=== PATIENT | female | born 1965 | race Caucasian/White ===

== ENCOUNTER 2016-11-13 17:49 | Inpatient (IN) | payer BC, MEDICAID ==
[~2016-11-13] VITALS: Ht 167.6 cm; Wt 68.5 kg
[2016-11-13 17:55] VITALS: BP_SYST 139
--- NOTE | 2016-11-13 18:00 | NUR ---
Vianney Stringer DIRECTOR OF ANALYTICS at bedside examining pt.
--- NOTE | 2016-11-13 18:09 | NUR ---
Pt AAOx4, able to verbalize needs. Pt states she was feeling stressed out d/t of spouse few days ago. Pt states 6/10 sharp pain in chest radiating to L arm, started after eating, unaffected by activity. No other complaints or inuries per pt or noted.
[2016-11-13] MEDS ORDERED: LORazepam 2 MG/ML VIAL IVP ONE (18:30)
[2016-11-13] MEDS ORDERED: ASPIRIN 81 MG TAB.CHEW PO ONE (18:30)
[2016-11-13] MEDS ORDERED: LevALBUTEROL HCL 1.25 MG/0.5 ML *CONC.* VIAL.NEB (XOPENEX CONC.) INH ONE (18:30)
[2016-11-13 18:45] LABS: CALCIUM 8.3 mg/dL (8.4-11.0); CREATININE 0.99 mg/dL (0.55-1.30); POTASSIUM 3.3 mmol/L (3.5-5.1)
[2016-11-13 18:50] LABS: ALBUMIN 3.5 g/dL (3.4-4.8); TOTAL BILIRUBIN 0.4 mg/dL (0.0-1.0)
--- NOTE | 2016-11-13 18:50 | NUR ---
Dr. Thomas at bedside with pt.
[2016-11-13] MEDS ORDERED: POTASSIUM CHLORIDE 10 MEQ TAB.PRT.SR PO ONE (19:00)
--- NOTE | 2016-11-13 19:00 | NUR ---
IV 20G inserted on R wrist via aseptic technique, flushed, patent. One attempt. No infiltration or erythema noted.
[2016-11-13 19:11] LABS: BASOPHILS # (AUTO) 0.1 K/uL (0.0-0.2); BASOPHILS % (AUTO) 0.7 % (0.0-2.0); EOSINOPHILS # (AUTO) 0.2 K/uL (0.0-0.4); HEMATOCRIT 33.5 % (36-48); HEMOGLOBIN 11.1 g/dL (12.0-16.0); LYMPHOCYTES # (AUTO) 1.4 K/uL (1.0-5.5); LYMPHOCYTES % (AUTO) 15.9 % (20.5-51.5); MEAN CORPUSCULAR HEMOGLOBIN 27 pg (27-31); MEAN CORPUSCULAR HGB CONC 33 % (32-36); MEAN CORPUSCULAR VOLUME 81 fL (79.0-98.0); MONOCYTES # (AUTO) 0.6 K/uL (0.0-1.0); MONOCYTES % (AUTO) 6.5 % (1.7-9.3); NEUTROPHILS # (AUTO) 6.3 K/uL (1.8-7.7); NEUTROPHILS % (AUTO) 74.9 % (40.0-70.0); PLATELET COUNT (AUTO) 267 K/uL (130-430); RED BLOOD CELL COUNT(AUTO) 4.12 MIL/uL (4.2-6.2); RED CELL DISTRIBUTION WIDTH 14.4 % (9.0-15.0); WHITE BLOOD COUNT (AUTO) 8.6 K/uL (4.8-10.8)
--- NOTE | 2016-11-13 19:11 | NUR ---
Report received from BRUNA Dowling: All care endorsed.
[2016-11-13] MEDS ORDERED: LORazepam 2 MG/ML VIAL (FOR ER USE) ONE (19:22)
--- NOTE | 2016-11-13 19:30 | NUR ---
Pt states that chest pain has lowered to 5/10 pain scale at this time, pt resting in bed. Pt states chest pain is currently a dull pain, denies radiation to the L arm at this time. Pt denies SOB, 97% on room air. Pt denies any other complaints.
[2016-11-13 19:32] LABS: BILIRUBIN,URINE NEGATIVE (NEGATIVE); BLOOD, URINE 3+ (NEGATIVE); CLARITY/URINE CLOUDY (CLEAR); COLOR,URINE RED (YELLOW); GLUCOSE,URINE NEGATIVE (NEGATIVE); KETONES,URINE NEGATIVE (NEGATIVE); LEUKOCYTE ESTERASE ,URINE NEGATIVE (NEGATIVE); NITRITE, URINE NEGATIVE (NEGATIVE); PROTEIN URINE 2+ (NEGATIVE); UROBILINOGEN,URINE 0.2 (0.2-1.0)
--- NOTE | 2016-11-13 20:00 | NUR ---
Pt stable, no signs of distress noted.
--- NOTE | 2016-11-13 20:35 | NUR ---
Pt denies taking any home meds at home. Belongings list completed by BRUNA Galaviz.
--- NOTE | 2016-11-13 20:49 | NUR ---
Patient will be admitted to care of Dr. Mcqueen. Admitted to tele unit. Belongings list completed. Summary report printed. Report given to admitting RN at bedside.
--- NOTE | 2016-11-13 20:49 | NUR ---
Note gustavo in ED - 11/14/16 at 0221 by SDEDEJ Patient will be admitted to care of Dr. uRvalcaba. Admitted to tele unit. Belongings list completed. Summary report printed. Report given to admitting RN at bedside.
[2016-11-13 21:00] VITALS: BP_SYST 131
--- NOTE | 2016-11-13 21:08 | NUR ---
ADMISSION NOTE Received patient from ER via dwight, received report from Wilma MCFARLAND. Patient admitted with diagnosis of chest pain. Patient oriented to hospital routine, call light, toileting and safety-patient verbalized understanding.
[2016-11-13 21:14] LABS: BACTERIA,URINE FEW /HPF (None Seen); MUCUS,URINE 2+ /LPF (None Seen); RBC,URINE >100 /HPF (0-3)
--- NOTE | 2016-11-13 21:15 | NUR ---
Received report & assumed care of pt at this time;admission physical assess as charted,pt currenlty lethargic,difficult to arouse (received IV Ativan in ER); no signs/symptoms of pain/distress observed
[2016-11-13] MEDS ORDERED: ASPIRIN 325 MG TABLET (ECOTRIN) PO ONE (21:45)
[2016-11-13] MEDS ORDERED: METOPROLOL TARTRATE 25 MG TABLET PO ONE (21:45)
[2016-11-13 22:00] VITALS: BP_SYST 131
--- NOTE | 2016-11-13 23:00 | NUR ---
Pt care rounds conducted hourly;pt remains asleep & difficult to arouse;resp even & reg w/no signs of pain observed
[2016-11-14 00:45] VITALS: BP_SYST 127
[2016-11-14] MEDS ORDERED: *HEPARIN PER PHARMACY XX ONE (00:45)
--- NOTE | 2016-11-14 00:45 | NUR ---
0016:Critical Lab:notified of Trop level=13.23;discussed w/charge nurse;will call roller engraver consulted & request stat consult 0030:call placed to Dr Ramirez's exchange;informed Dr Schmitt laborer demolition 0035:Dr Schmitt returned call;2 previous troponin results,telemetry reading & VS discussed;received orders for heparin drip
[2016-11-14] MEDS ORDERED: HEPARIN SODIUM,PORCINE 2000 UNITS/0.4 ML BOLUS IVP PRN (01:15)
[2016-11-14] MEDS ORDERED: HEPARIN SODIUM,PORCINE 5000 UNITS/ML VIAL IV ONE (01:15)
[2016-11-14] MEDS ORDERED: HEPARIN SODIUM,PORCINE 3000 UNITS/0.6 ML BOLUS IVP PRN (01:15)
[2016-11-14] MEDS: HEPARIN 25,000 UNITS/D5W 250ML 250 ML IV PRN ×3 (02:39→18:01)
--- NOTE | 2016-11-14 03:00 | NUR ---
Pt care rounds conducted hourly;pt intermittenlty sleeping/awake;pt pleasant & cooperative,steady gait;pt denies chest discomfort, no signs of acute distress observed
[2016-11-14 03:47] VITALS: BP_SYST 135
--- NOTE | 2016-11-14 04:17 | NUR ---
CONSULT: CONSULT CALLED FOR DR. TYSON I SPOKE WITH [facility] AIDE #[id number] REASON FOR CONSULT: CHEST PAIN NUMBER I CALLED [phone] CONSULT ENTERED : BY DR. BENSON
--- NOTE | 2016-11-14 06:30 | NUR ---
Closing Note:pt care rounds conducted hourly;pt slept most of night;awake/alert & oreinted x4 at present,denies chest pain; no signs/symptoms of acute distress evident
[2016-11-14 08:00] VITALS: BP_SYST 140
--- NOTE | 2016-11-14 08:00 | NUR ---
OPENING NOTES, PT IN BED, DENIES ANY CHEST PAIN THIS TIME. PT KEPT NPO FOR POSS STENT PLACEMENT, HEPARIN DRIP ONGOING. NO BLEEDING FROM IV SITE. NO BLEEDING NOTED OR REPORTED. CALL LIGHT IN REACH. BED IN LOW POSITION. WILL CONT TO MONITOR.
[2016-11-14] MEDS ORDERED: METOPROLOL TARTRATE 25 MG TABLET PO SCH (09:00)
[2016-11-14] MEDS: ASPIRIN 325 MG TABLET (ECOTRIN) PO SCH ×2 (09:41→09:43)
--- NOTE | 2016-11-14 10:00 | NUR ---
ROUNDING NOTES, PATIENT IN BED, DENIES PAIN. MD AT BEDSIDE. 2D ECHO IN PROCESS. WILL CONT TO MONITOR.
--- NOTE | 2016-11-14 10:11 | NUR ---
DC PLANNING: Met with pt and dr. Patel at bedside and received order from dr. Patel , route sales driver to send pt to [facility] for cardiac heart cath scheduled at [address] Paetl. Per Katerina Andrade/ [employer], "the pt. is to transfer to [facility], [facility] where there is able to do the heart cath for the pt." I notified dr. Mcqueen , the md stated " the pt has to go to [facility] Emergency. We can't wait." Raymond was notified and said " he will speak with and to have dr. Sim to take over the case. " -- dr. Mcqueen made aware >> Pre booked contracted ambulance, [facility], ALS transfer # [phone]. auth # [id number]. Kiesha, dispatcher will call me back with ETA. Addendum: 11/14/16 at 1034 by Michael Tompkins RN >> The pt made aware of the transfer order and process. She agreed for transferring to [facility] per insurance policy. -- JIM Addendum: 11/14/16 at 1045 by Michael Tompkins RN >> Per Kiesha at [facility] ambulance, gave garbage pick up worker ETA at 1230 pm. The time may be changed pending bed assignment from katerina Andrade/Estevan.-- Kiesha made aware and will have the ambulance crew be on stand by. Addendum: 11/14/16 at 1507 by Michael Tompkins RN >> Late entry: 1200 , cancelled [facility] ambulance transfer and changed to " will call" with Evelin,dispatcher # [phone]. >> Call from katerina Garcia/Estevan, : the pt.is accepted at [facility] by dr. Pettit,route sales driver (already spoke with dr. Mcqueen) , and dr. Mena, PMD. Radha will call [facility] #[phone] to give bed assingment and phone no. for RN report. -- BRUNA Jordan made aware. Addendum: 11/14/16 at 1512 by Michael Tompkins RN >> In the event that [facility] ambulance is not available or given too late timing. Radha provided another as needed, second auth #[id number], may call [employer] or [facility]. -- BRUNA Salazar made aware. Addendum: 11/14/16 at 1515 by Michael Tompkins RN >> Per KATERINA Andrade/[facility], dr. Sim was called off the case, Dr Pettit is taking the case at [facility]. -- TVRN
--- NOTE | 2016-11-14 11:00 | NUR ---
HEPARIN DRIP CHANGED TO 10ML/HOUR (1000 UNITS). DOSE VERIFIED WITH BRUNA BAILEY. WILL CONT TO MONITOR.
--- NOTE | 2016-11-14 11:32 | NUR ---
Call from Dr Chiquis Grimm. He asked to speak to engine manager Michael. I gave her his cellphone number. He also asked to speak to Dr Mcqueen. I paged dr Mcqueen and Left a message as well with Dr Sim cell phone number.
[2016-11-14 12:39] VITALS: BP_SYST 137
--- NOTE | 2016-11-14 13:00 | NUR ---
ROUNDING NOTES, PT IN BED, NO PAIN, NO SOB, NO DISTRESS. NO BLEEDING NOTED OR REPORTED., HEPARIN DRIP ON GOING AT PRESCRIBED RATE. CALL LIGHT IN REACH, BED IN LOW POSITION. WILL CONT TO MONITOR.
[2016-11-14 16:00] VITALS: BP_SYST 132
--- NOTE | 2016-11-14 16:09 | NUR ---
DC planning: Scheduled fruit picker time at 530 pm with Kvng @ [facility] Response #[phone] to [facility] , room 342A, tel # [phone]. BRUNA Jordan made aware.--TVRN
--- NOTE | 2016-11-14 18:00 | NUR ---
REPORT GIVEN TO NURSE CORONADO OF [facility].
[2016-11-14 18:28] VITALS: BP_SYST 132
--- NOTE | 2016-11-14 19:20 | NUR ---
D/C Patient Patient given medication reconciliation form and D/C instructions. Exit Care provided. Patient verbalized understanding. MD discussed with patient the results and treatment provided. Ambulatory with steady gait for discharge to home. Patient in stable condition, ID band removed. IV catheter kept intact, for transport and per request of admitting nurse. No active bleeding. Patient educated on pain management, heparin and possible surgical procedure. All belongings sent with patient.
== END 2016-11-14 19:30 | disposition short-term general hospital (02) | DRG 190 ==
LOC: SED 17:49 → STU 20:22
PROVIDERS: ADMIT Internal Medicine Hospice and Palliative Medicine; ATTEND Internal Medicine Hospice and Palliative Medicine
DX: I21.4 Non-ST elevation (NSTEMI) myocardial infarction (principal); R06.00 Dyspnea, unspecified; Z87.891 Personal history of nicotine dependence
CPT/HCPCS: 36415; 71010; 80053; 81000-TC; 83880; 84484; 85025; 85379; 85730-TC; 93005; 93306; 94640; 96374; 99285; J1644; J2060

== ENCOUNTER 2017-02-12 00:30 | Emergency (ER) | payer MEDICAID ==
[~2017-02-12] VITALS: Ht 167.6 cm; Wt 72.6 kg
[2017-02-12 00:38] VITALS: BP_SYST 159
--- NOTE | 2017-02-12 00:38 | NUR ---
Patient to ER bed 6 to await MD burk.
--- NOTE | 2017-02-12 00:40 | NUR ---
Dr Singh at bedside to evaluate patient-orders received.
[2017-02-12] MEDS ORDERED: HYDROcodone/ACETAMIN 5-325 MG TAB (NORCO/ VICODIN) PO ONE (00:45)
[2017-02-12] MEDS ORDERED: ASPI-1063 PO (00:52)
[2017-02-12] MEDS ORDERED: LIP20 PO (00:52)
[2017-02-12] MEDS ORDERED: CLOP75TA2 PO (00:52)
--- NOTE | 2017-02-12 01:00 | NUR ---
Patient to ER via triage with c/o left lower extremity pain and swelling since 02/11/17 at 0700. Patient rates pain as 8/10-Patient denies any known trauma or injury. Patient has been seen and evaluated by Dr Singh-orders received. Will continue to observe and assess. Visitor at bedside.
--- NOTE | 2017-02-12 01:30 | NUR ---
X-ray at bedside for films.
[2017-02-12 01:55] VITALS: BP_SYST 140
--- NOTE | 2017-02-12 01:55 | NUR ---
Patient given written and verbal discharge instructions and verbalizes understanding. ER MD discussed with patient the results and treatment provided. Patient in stable condition. ID arm band removed. Rx of [place] given. Patient educated on pain management and to follow up with PMD. Pain Scale 2. Opportunity for questions provided and answered.
--- NOTE | 2017-02-12 01:55 | NUR ---
Patient left ED in stable condition ambulating with crutches with slow, steady gait.
== END 2017-02-12 00:55 | disposition home or self-care (01) ==
LOC: SED 00:30
DX: S93.492A Sprain of other ligament of left ankle, initial encounter (principal); R03.0 Elevated blood-pressure reading, without diagnosis of hypertension; J45.909 Unspecified asthma, uncomplicated; Z79.82 Long term (current) use of aspirin; Z98.890 Other specified postprocedural states; X58.XXXA Exposure to other specified factors, initial encounter; Y93.89 Activity, other specified; Y92.89 Other specified places as the place of occurrence of the external cause; Y99.8 Other external cause status
CPT/HCPCS: 99284

== ENCOUNTER 2017-07-04 10:42 | Emergency (ER) | payer MEDICAID ==
[~2017-07-04] VITALS: Ht 167.6 cm; Wt 63.5 kg
[2017-07-04 10:42] VITALS: BP_SYST 162
[~2017-07-04 10:42] MED LIST: ASPI-1063 PO; CLOP75TA2 PO; LIP20 PO
--- NOTE | 2017-07-04 10:42 | NUR ---
BROUGHT BACK TO BED #7 AND TRIAGED. REPORT GIVEN TO OLEKSANDR
--- NOTE | 2017-07-04 10:42 | NUR ---
Pt report received from BRUNA Velez. Pt c/o non-productive and dry cough x 3 weeks. No relief from Phenergan with codeine.
--- NOTE | 2017-07-04 10:55 | NUR ---
Dr. Olsen at bedside for evaluation
[2017-07-04] MEDS ORDERED: IPRATROPIUM BROM 0.5 MG/2.5 ML VIAL.NEB (ATROVENT) IH ONE (11:00)
[2017-07-04] MEDS ORDERED: ALBUTEROL SULFATE 0.083% 2.5 MG/3 ML VIAL.NEB IH ONE (11:00)
[2017-07-04 12:11] VITALS: BP_SYST 142
--- NOTE | 2017-07-04 12:12 | NUR ---
Patient given written and verbal discharge instructions and verbalizes understanding. ER MD discussed with patient the results and treatment provided. Patient in stable condition. ID arm band removed. Rx of QVAR, ACYCLOVIR given. Patient educated on pain management and to follow up with PMD. Pain Scale 0/10. Opportunity for questions provided and answered.
== END 2017-07-04 12:12 | disposition home or self-care (01) ==
LOC: SED 10:42
DX: J06.9 Acute upper respiratory infection, unspecified (principal); B00.2 Herpesviral gingivostomatitis and pharyngotonsillitis; J45.909 Unspecified asthma, uncomplicated; Z86.79 Personal history of other diseases of the circulatory system; Z79.82 Long term (current) use of aspirin
CPT/HCPCS: 71046-TC; 94640; 99284

== ENCOUNTER 2017-11-30 18:01 | Emergency (ER) | payer MEDICAID ==
[2017-11-30 18:05] VITALS: BP_SYST 108
[2017-11-30] MEDS ORDERED: NACL 0.9% 1,000 ML IV ONE (18:30)
[2017-11-30 18:42] LABS: BASOPHILS # (AUTO) 0.1 K/uL (0.0-0.2); BASOPHILS % (AUTO) 0.8 % (0.0-2.0); EOSINOPHILS % (AUTO) 0.3 % (0.0-4.0); HEMATOCRIT 42.7 % (36-48); HEMOGLOBIN 13.6 g/dL (12.0-16.0); LYMPHOCYTES % (AUTO) 8.6 % (20.5-51.5); MEAN CORPUSCULAR HEMOGLOBIN 27 pg (27-31); MEAN CORPUSCULAR HGB CONC 32 % (32-36); MEAN CORPUSCULAR VOLUME 85 fL (79.0-98.0); MONOCYTES # (AUTO) 0.6 K/uL (0.0-1.0); MONOCYTES % (AUTO) 5.4 % (1.7-9.3); NEUTROPHILS # (AUTO) 10.2 K/uL (1.8-7.7); NEUTROPHILS % (AUTO) 84.9 % (40.0-70.0); PLATELET COUNT (AUTO) 342 K/uL (130-430); RED BLOOD CELL COUNT(AUTO) 5.01 MIL/uL (4.2-6.2); RED CELL DISTRIBUTION WIDTH 14.3 % (9.0-15.0); WHITE BLOOD COUNT (AUTO) 11.9 K/uL (4.8-10.8)
[2017-11-30 18:48] LABS: CALCIUM 9.4 mg/dL (8.4-11.0); CREATININE 1.64 mg/dL (0.55-1.30); POTASSIUM 3.5 mmol/L (3.5-5.1)
[2017-11-30 18:53] LABS: ALBUMIN 4.2 g/dL (3.4-4.8); TOTAL BILIRUBIN 0.7 mg/dL (0.0-1.0)
[2017-11-30 19:30] VITALS: BP_SYST 105
== END 2017-11-30 19:30 | disposition home or self-care (01) ==
LOC: SED 18:01
DX: E86.0 Dehydration (principal); T67.5XXA Heat exhaustion, unspecified, initial encounter; J45.909 Unspecified asthma, uncomplicated; Z86.79 Personal history of other diseases of the circulatory system; Z79.82 Long term (current) use of aspirin; Z79.899 Other long term (current) drug therapy; X30.XXXA Exposure to excessive natural heat, initial encounter; Y93.89 Activity, other specified; Y92.89 Other specified places as the place of occurrence of the external cause; Y99.8 Other external cause status
CPT/HCPCS: 36415; 80053; 82550; 85025; 96360; 99284; J7030

== ENCOUNTER 2018-03-17 08:18 | Emergency (ER) | payer MEDICAID ==
[~2018-03-17] VITALS: Ht 167.6 cm; Wt 59.0 kg
[2018-03-17 08:18] VITALS: BP_SYST 138
[~2018-03-17 08:18] MED LIST changes: -ASPI-1063 PO; +ASPI-1153 PO
[2018-03-17] MEDS ORDERED: NACL 0.9% 1,000 ML IV ONE (08:26)
[2018-03-17] MEDS ORDERED: ASPIRIN 81 MG TAB.CHEW PO ONE (08:30)
[2018-03-17] MEDS ORDERED: KETOROLAC TROMETHAMINE 30 MG VIAL IVP ONE (08:30)
[2018-03-17 09:00] LABS: BILIRUBIN,URINE NEGATIVE (NEGATIVE); BLOOD, URINE 3+ (NEGATIVE); CLARITY/URINE SL CLOUDY (CLEAR); COLOR,URINE YELLOW (YELLOW); GLUCOSE,URINE NEGATIVE (NEGATIVE); KETONES,URINE NEGATIVE (NEGATIVE); LEUKOCYTE ESTERASE ,URINE 3+ (NEGATIVE); NITRITE, URINE POSITIVE (NEGATIVE); PROTEIN URINE NEGATIVE (NEGATIVE); UROBILINOGEN,URINE 0.2 (0.2-1.0)
[2018-03-17 09:03] LABS: BASOPHILS % (AUTO) 0.8 % (0.0-2.0); EOSINOPHILS # (AUTO) 0.1 K/uL (0.0-0.4); EOSINOPHILS % (AUTO) 2.1 % (0.0-4.0); HEMOGLOBIN 13.2 g/dL (12.0-16.0); LYMPHOCYTES # (AUTO) 0.9 K/uL (1.0-5.5); LYMPHOCYTES % (AUTO) 16.3 % (20.5-51.5); MEAN CORPUSCULAR HEMOGLOBIN 28 pg (27-31); MEAN CORPUSCULAR HGB CONC 32 % (32-36); MEAN CORPUSCULAR VOLUME 86 fL (79.0-98.0); MONOCYTES # (AUTO) 0.4 K/uL (0.0-1.0); MONOCYTES % (AUTO) 6.8 % (1.7-9.3); NEUTROPHILS # (AUTO) 4.4 K/uL (1.8-7.7); PLATELET COUNT (AUTO) 316 K/uL (130-430); RED BLOOD CELL COUNT(AUTO) 4.78 MIL/uL (4.2-6.2); RED CELL DISTRIBUTION WIDTH 13.7 % (9.0-15.0); WHITE BLOOD COUNT (AUTO) 5.8 K/uL (4.8-10.8)
[2018-03-17 09:11] LABS: CALCIUM 8.6 mg/dL (8.4-11.0); CREATININE 0.86 mg/dL (0.55-1.30); POTASSIUM 3.3 mmol/L (3.5-5.1)
[2018-03-17 09:13] LABS: BARBITURATE, URINE NEGATIVE (NEG <=200); BENZODIAZEPINE, URINE NEGATIVE (NEG <=150); CANNABINOID, URINE POSITIVE (NEG <=50); COCAINE, URINE NEGATIVE (NEG <=150); METHAMPHETAMINES SCREEN,URINE NEGATIVE (NEG <=500); OPIATE, URINE NEGATIVE (NEG <=100); PHENCYCLIDINE SCREEN,URINE NEGATIVE (NEG <=25); UR TRICYCLIC ANTIDEPRESSANTS NEGATIVE (NEG <=300); URINE AMPHETAMINE NEGATIVE (NEG <=500); URINE METHADONE NEGATIVE (NEG <=200); URINE OXYCODONE SCREEN NEGATIVE (NEG <=100); URINE PROPOXYPHENE SCREEN NEGATIVE (NEG <=300)
[2018-03-17 09:15] LABS: PROTHROMBIN TIME 10.2 SECS (9.5-12.5)
[2018-03-17 09:16] LABS: ALBUMIN 3.7 g/dL (3.4-4.8); TOTAL BILIRUBIN 1.2 mg/dL (0.0-1.0)
[2018-03-17 09:25] LABS: BACTERIA,URINE MANY /HPF (None Seen); WBC,URINE 20-50 /HPF (0-3)
[2018-03-17 10:45] VITALS: BP_SYST 148
== END 2018-03-17 10:45 | disposition home or self-care (01) ==
LOC: SED 08:18
DX: M79.602 Pain in left arm (principal); N39.0 Urinary tract infection, site not specified; F17.200 Nicotine dependence, unspecified, uncomplicated; J45.909 Unspecified asthma, uncomplicated; Z86.79 Personal history of other diseases of the circulatory system; Z79.82 Long term (current) use of aspirin; Z79.899 Other long term (current) drug therapy
CPT/HCPCS: 36415; 71045; 80053; 80307; 81000; 82150; 82550; 83690; 84484; 85025; 85610; 85730; 87086; 87186; 93005; 96374; 99285; J1885; J7030

== ENCOUNTER 2018-10-31 15:46 | Emergency (ER) | payer MEDICAID ==
[~2018-10-31] VITALS: Ht 167.6 cm; Wt 59.0 kg
[2018-10-31 15:52] VITALS: BP_SYST 136
--- NOTE | 2018-10-31 16:05 | NUR ---
Patient to ER bed 03 to gown for evaluation. Side rails up.
--- NOTE | 2018-10-31 16:11 | NUR ---
LUCIEN ESPARZA at bedside examining patient.
--- NOTE | 2018-10-31 16:16 | NUR ---
PATIENT CAME IN COMPLAINING OF COUGH FOR ABOUT A MONTH THAT WAS GOING AWAY BUT CAME BACK WORST 2 DAYS AGO. PATIENT COMPLAINING OF PAIN ONLY WHEN SHE COUGHS. PATIENT STATES SHE SMOKES 1-2 CIGARETTES A DAY. PATIENT STATES SHE HAS NOT BEEN AROUND ANY SICK PEOPLE. PATIENT NOT COMPLAINING OF SOB. PATIENT ALERT AND ORIENTED X4.
--- NOTE | 2018-10-31 16:34 | NUR ---
Patient given written and verbal discharge instructions and verbalizes understanding. ER MD discussed with patient the results and treatment provided. Patient in stable condition. ID arm band removed. Rx of [place] given. Patient educated on pain management and to follow up with PMD. Pain Scale 0/10. Opportunity for questions provided and answered. Medication side effect fact sheet provided.
[2018-10-31 16:36] VITALS: BP_SYST 136
== END 2018-10-31 16:34 | disposition home or self-care (01) ==
LOC: SED 15:46
DX: J06.9 Acute upper respiratory infection, unspecified (principal); F17.210 Nicotine dependence, cigarettes, uncomplicated; J45.909 Unspecified asthma, uncomplicated; Z90.710 Acquired absence of both cervix and uterus; Z71.6 Tobacco abuse counseling
CPT/HCPCS: 99283

== ENCOUNTER 2019-01-29 13:06 | Emergency (ER) | payer MEDICAID ==
[~2019-01-29] VITALS: Ht 167.6 cm; Wt 65.8 kg
[2019-01-29 13:40] VITALS: BP_SYST 134
--- NOTE | 2019-01-29 13:46 | NUR ---
Patient triaged and placed in waiting room. VSS and patient appears in no acute distress at this time. Accompanied by self, awaiting available bed, and MD notified of need for MSE.
--- NOTE | 2019-01-29 15:45 | NUR ---
BROUGHT BACK TO BED #5 AND REPORT GIVEN TO DEVIKA
--- NOTE | 2019-01-29 15:55 | NUR ---
Patient presented to ER with pain & swelling to left lower leg. Patient A&Ox4, pain 8/10, denies N/V/D, swelling to left lower leg, pedal pulses present bilat. Patient states swelling mstarted 3 days ago, swelling increased after work. Working in [employer]. Patient states she has hx of heart attack 2016
--- NOTE | 2019-01-29 15:57 | NUR ---
ER Dr. TEMPLETON at bedside examining patient.
[2019-01-29] MEDS ORDERED: KETOROLAC TROMETHAMINE 60 MG/2 ML VIAL IM ONE (16:15)
[2019-01-29 16:55] VITALS: BP_SYST 131
--- NOTE | 2019-01-29 16:56 | NUR ---
Patient given written and verbal discharge instructions and verbalizes understanding. ER MD discussed with patient the results and treatment provided. Patient in stable condition. ID arm band removed. Rx of MOTRIN given. Patient educated on pain management and to follow up with PMD. Pain Scale 0/10. Opportunity for questions provided and answered. Medication side effect fact sheet provided.
== END 2019-01-29 16:56 | disposition home or self-care (01) ==
LOC: SED 13:06
DX: M25.562 Pain in left knee (principal); R60.0 Localized edema; I10 Essential (primary) hypertension; Z79.01 Long term (current) use of anticoagulants; Z79.82 Long term (current) use of aspirin; Z79.899 Other long term (current) drug therapy
CPT/HCPCS: 93971; 96372; 99284; J1885

== ENCOUNTER 2020-04-15 21:34 | Emergency (ER) | payer MEDICAID ==
[~2020-04-15] VITALS: Ht 167.6 cm; Wt 72.6 kg
[~2020-04-15 21:34] MED LIST changes: -ASPI-1153 PO; +ASPI-1393 PO
--- NOTE | 2020-04-15 21:45 | NUR ---
RECEIVED AND IN ROOM, HERE FOR C/O FINGER PAIN AND WANTING RING REMOVED
[2020-04-15 21:48] VITALS: BP_SYST 133
--- NOTE | 2020-04-15 21:50 | NUR ---
PT WALKED IN TO ER. PT C/O LEFT RING FINGER SWELLING. PT STATES SHE SMASHED HER FINGERS WITH BOXES AT WORK. PT WORKS AT [employer] +SWELLING. PT DENIES ANY PAIN. PT STATES SHE IS UNABLE TO REMOVE HER RING AND WOULD LIKE IT REMOVED. CIRCULATION AND SENSATION INTACT. BED LOCKED IN LOWEST POSITION. WILL CONTINUE TO MONITOR.
--- NOTE | 2020-04-15 21:55 | NUR ---
DR COOL AT BEDSIDE TO ASSESS
--- NOTE | 2020-04-15 22:50 | NUR ---
CUT REMOVED WITH RING CUTTER. PT TOLERATED PROCEDURE WELL. XRAY AT BEDSIDE.
[2020-04-15] MEDS ORDERED: IBUPROFEN 600 MG TABLET PO ONE (23:00)
[2020-04-15 23:20] VITALS: BP_SYST 133
--- NOTE | 2020-04-15 23:22 | NUR ---
Patient given written and verbal discharge instructions and verbalizes understanding. ER MD DR. COOL discussed with patient the results and treatment provided. Patient in stable condition. ID arm band removed. Rx of given. Patient educated on pain management and to follow up with PMD. Opportunity for questions provided and answered. Medication side effect fact sheet provided.
== END 2020-04-15 23:22 | disposition home or self-care (01) ==
LOC: SED 21:34
DX: S60.042A Contusion of left ring finger without damage to nail, initial encounter (principal); I10 Essential (primary) hypertension; J45.909 Unspecified asthma, uncomplicated; Z79.899 Other long term (current) drug therapy; Z79.82 Long term (current) use of aspirin; W22.8XXA Striking against or struck by other objects, initial encounter; Y93.89 Activity, other specified; Y92.89 Other specified places as the place of occurrence of the external cause; Y99.8 Other external cause status
CPT/HCPCS: 73140-TC; 99284

== ENCOUNTER 2020-07-13 16:49 | Emergency (ER) | payer MEDICAID ==
[~2020-07-13] VITALS: Ht 167.6 cm; Wt 63.5 kg
[2020-07-13 16:53] VITALS: BP_SYST 140
[2020-07-13] MEDS: IBUPROFEN 600 MG TABLET PO ONE (17:35)
[2020-07-13 18:25] VITALS: BP_SYST 140
== END 2020-07-13 18:25 | disposition home or self-care (01) ==
LOC: SED 16:49
DX: M25.512 Pain in left shoulder (principal); M79.662 Pain in left lower leg; J45.909 Unspecified asthma, uncomplicated; I10 Essential (primary) hypertension; E78.00 Pure hypercholesterolemia, unspecified; Z86.73 Personal history of transient ischemic attack (TIA), and cerebral infarction without residual deficits; Z79.899 Other long term (current) drug therapy; Z79.82 Long term (current) use of aspirin; V49.49XA Driver injured in collision with other motor vehicles in traffic accident, initial encounter; Y93.89 Activity, other specified; Y92.413 State road as the place of occurrence of the external cause; Y99.8 Other external cause status
CPT/HCPCS: 73030; 73590-TC; 99284